=== PATIENT | male | born 1970 ===

== ENCOUNTER 2018-10-26 08:38 | Outpatient (CLI) | payer SELFPAY | END 2018-10-26 08:39 | disposition home or self-care (01) | LOC: C.CARD 08:38 | DX: R07.89 Other chest pain (principal) ==

== ENCOUNTER 2018-11-08 06:00 | Day surgery (SDC) | payer SELFPAY ==
[2018-09-21 10:54] VITALS: BMI 19.3
--- NOTE | 2018-11-08 07:29 | CP.SDSHP ---
Same Day Surgery H & P - History Proposed Procedure: Colonoscopy Pre-Op Diagnosis: Screening for colon cancer/Family h/o colon cancer. Change in bowels - Previous Medical/Surgical History Misc: Other (lactose intolerance) Previous Surgical History: Appendectomy - Allergies Allergies: Allergies No Known Allergies Allergy (Verified 11/07/15 16:26) - Physical Exam Vital Signs: Vital Signs 11/08/18 06:35 Temperature 99 F Pulse Rate 80 Respiratory 20 Rate Blood Pressure 115/63 O2 Sat by Pulse 98 Oximetry Mental Status: Alert & Oriented x3 Neuro: WNL Heart: WNL Lungs: WNL GI: WNL - Impression Impression: Screening/Family h/o colon cancer. change in bowel habits Pt. Evaluated Today:Candidate for Anesthesia & Procedure: Yes - Date & Time Date: 11/08/18 Time: 07:29 Short Stay Discharge - Short Stay Discharge Admitting Diagnosis/Reason for Visit: CHANGE IN BOWEL HABIT,FAMILY HISTORY OF MALIGNANT Disposition: HOME/ ROUTINE
[2018-11-08] MEDS ORDERED: Propofol 10 mg/ml Inj (20 ML) ONE (07:37)
[2018-11-08] MEDS ORDERED: Lactated Ringer's 500 ML IV ONE (07:38)
[2018-11-08 07:47] VITALS: O2SAT 100
[2018-11-08 08:14] VITALS: TEMP 97.5
[2018-11-08 08:48] VITALS: RESP 18
[2018-11-08 09:19] VITALS: BP 129/72; PULSE 72
== END 2018-11-08 09:15 | disposition home or self-care (01) ==
LOC: C.ENDO 06:00
PROVIDERS: ATTEND Internal Medicine Gastroenterology
DX: Z12.11 Encounter for screening for malignant neoplasm of colon (principal); Z80.0 Family history of malignant neoplasm of digestive organs; K64.1 Second degree hemorrhoids; K57.30 Diverticulosis of large intestine without perforation or abscess without bleeding; E73.9 Lactose intolerance, unspecified
CPT/HCPCS: G0105; J2704; J7120